=== PATIENT | male | born 1940 | race African-American/Black ===

== ENCOUNTER 2017-07-30 15:08 | Inpatient (IN) | payer MEDICARE ==
[2017-07-30] MEDS ORDERED: CELEXA20 MG PO (15:26)
[2017-07-30] MEDS ORDERED: NORVASC10 MG PO (15:26)
[2017-07-30] MEDS ORDERED: PLAVIX75 MG PO (15:27)
[2017-07-30] MEDS ORDERED: HYDROCHLOROTH12.5 M1 PO (15:27)
[2017-07-30] MEDS ORDERED: PRINIVIL20 MG PO (15:28)
[2017-07-30] MEDS ORDERED: GLUCOPHAGE1000 MG PO (15:28)
[2017-07-30] MEDS ORDERED: NAMENDA XR28 MG PO (15:29)
[2017-07-30] MEDS ORDERED: PROTONIX20 MG PO (15:30)
[2017-07-30] MEDS ORDERED: FLOMAX0.4 MG PO (15:30)
--- NOTE | 2017-07-30 15:45 | NUR ---
PATIENT CAME ON THE UNIT LOUD AND OBNOXIOUS, CURSING AND TELLING THE STAFF THAT BROUGHT HIM "I AINT STAYING AT THIS M FING PLACE." CALLED JEFFRY REEVES, DID RECEIVE NEW ORDER ATIVAN 1 MG AND HALDOL 2 MG IM GIVEN IN RIGHT DELTOID. CALLED Edi MELENDREZ, STAFF LEFT THAT BROUGHT HIM, PATIENT IN HIS OWN W/C. MADE TWO ATTEMPTS TO CALL HIS POA, LEFT MESSAGES ON BOTH PHONES.
--- NOTE | 2017-07-30 16:35 | NUR ---
PRODUCTION WEIGHER [employer]SON BATRES DID PROVIDE PATIENT A CUP OF ICED WATER. PATIENT SITTING IN HALLWAY RELAXING, HE IS CALMER, NOT RANTING, RAVING, OR CURSING.
--- NOTE | 2017-07-30 16:46 | NUR ---
PATIENT NEEDED TO URINATE AND STAFF WAS ABLE TO OBTAIN A URINE FOR A UA/C&S.
--- NOTE | 2017-07-30 16:50 | NUR ---
PATIENT DOES NOT WANT TO BE ASSESSED OR TOUCHED, DID CALL [facility]AN [facility]SQUE[facility] TO GET AN H&P AND SOCIAL HISTORY TO ANSWER QUESTIONS. PATIENTS' POA HAS NOT RETURNED A PHONE CALL YET FOR VERBAL CONSENT. WILL USE THE H&P TO DO AN ADMISSION. HELD LAB WORK AND EKG UNTIL THE AM.
[2017-07-30 16:54] LABS: APPEARANCE CLEAR (CLEAR); BILIRUBIN NEGATIVE (NEGATIVE); COLOR YELLOW (YELLOW); GLUCOSE 1000 mg/dL (NEGATIVE); KETONE SMALL mg/dL (NEGATIVE); NITRITE NEGATIVE (NEGATIVE); PROTEIN NEGATIVE (NEGATIVE); UROBILINOGEN NORMAL (NORMAL)
[2017-07-30 16:55] LABS: WHITE CELLS - URINE 0-5 /hpf (0-5)
[2017-07-30 16:56] LABS: AMORPHOUS SEDIMENT <1+ /lpf (NONE SEEN); CALCIUM OXALATE CRYSTALS OCC /hpf (NONE SEEN)
[2017-07-30 17:27] VITALS: BMI 24.7
[2017-07-30 20:58] VITALS: BP 117/72
--- NOTE | 2017-07-31 02:38 | NUR ---
B) Patient alert and oriented to self, does not want to be here, restless and wandering, I) PRN Ativan 0.5 mg PO and Haldol 2 mg PO given at 19:44 for anxiety, redirected as needed, R) Medication compliant, wanted to walk to room, unsteady gait, P) Continue plan of care.
[2017-07-31 06:33] LABS: HEMATOCRIT 43.6 % (42.0-54.0); HEMOGLOBIN 14.7 g/dL (13.5-17.5); MCH 31.1 pg (26.0-34.0); MCHC 33.7 g/dL (31.0-37.0); MCV 92.4 fL (80.0-100.0); MEAN PLATELET VOLUME 11.3 fL (7.4-10.4); PLATELET COUNT 130 10x3/uL (130-400); RBC 4.72 10x6/uL (4.20-6.10); WBC 5.2 10x3/uL (4.8-10.8)
[2017-07-31 06:46] LABS: HEMOGLOBIN A1C 7.1 % (4.8-6.0)
[2017-07-31 06:54] LABS: EOSINOPHILS 3 % (0-7); LYMPHOCYTES 46 % (15-50); MONOCYTES 2 % (2-11); NEUTROPHILS 49 % (40-80); PLATELET ESTIMATE NORMAL
[2017-07-31 07:04] LABS: ALBUMIN 3.5 g/dL (3.4-5.0); ALKALINE PHOSPHATASE 115 U/L (46-116); ALT (SGPT) 80 U/L (10-68); CALC OSMOLALITY 286 mosm/kg (275-300); CALCIUM 8.7 mg/dL (8.5-10.1); CHLORIDE - SERUM 108 mmol/L (98-107); CHOL - HDL RATIO 4.3 ratio (2.3-4.9); CHOLESTEROL, TOTAL 190 mg/dL (0-200); CREATININE - SERUM 0.9 mg/dL (0.6-1.3); GLUCOSE 131 mg/dL (74-106); HDL CHOLESTEROL 44 mg/dL (32-96); LDL CHOLESTEROL 122 mg/dL (0-100); LDL-HDL RATIO 2.8 ratio (1.5-3.5); POTASSIUM - SERUM 3.7 mmol/L (3.5-5.1); PROTEIN - SERUM 6.4 g/dL (6.4-8.2); SODIUM 144 mmol/L (136-145); THYROID STIMULATING HORMONE 2.35 uIU/mL (0.36-3.74); TRIGLYCERIDE 122 mg/dL (30-200); UREA NITROGEN 7 mg/dL (7-18); eGFR NON AFRICAN AMERICAN 87 mL/min (90-120)
[2017-07-31 08:15] VITALS: BP 164/86
[2017-07-31 08:16] VITALS: BMI 24.8
--- NOTE | 2017-07-31 08:39 | NUR ---
CALLED THE RETIREMENT TO SEE IF PATIENT'S POA HAD ALTERNATE PHONE NUMBERS, POA DOES NOT, CALLED POA'S TWO PHONE NUMBERS PROVIDED, LEFT MESSAGES, ALSO CALLED HIS TWO OTHER DAUGHTERS, LEFT MESSAGE WITH ONE AND THE OTHER THE VOICE MAILBOX HAS NOT BEEN SET UP.
--- NOTE | 2017-07-31 08:48 | NUR ---
RECEIVED VERBAL CONSENT FROM BEBA CHINO AND KAMINI TABARES. THE CODE WORD IS CHRIS.
--- NOTE | 2017-07-31 09:30 | NUR ---
PATIENT IS CURSING AND GETTING LOUD, HE IS SAYING "I'M GOING TO KILL SOMEONE" TRIED TO DE ESCALATE PATIENT BY REMOVING HIM FROM OTHERS AND THAT DID HELP ALITTLE. DID PROVIDE ATIVAN 0.5 MG WITH HALDOL 2 MG PO.
--- NOTE | 2017-07-31 10:30 | NUR ---
PATIENT IS CALMER NOW, HE IS RECLINED IN A GERICHAIR AND NOT CURSING OR THREATENING OTHERS.
[2017-07-31 10:59] VITALS: BMI 24.7
--- NOTE | 2017-07-31 11:07 | NUR ---
B) PATIENT IS AWAKE AND ALERT THIS AM, HE TRIES TO WALK, BUT HE IS UNSTEADY. HE DOES NOT LISTEN TO REDIRECTION, SAYS HE HATES EVERYONE AND HAS ALWAYS FELT THAT WAY. I) PROVIDE MEDS PRESCRIBED. R) PATIENT IS TAKING HIS MEDS, HE IS ORINETED TO SELF ONLY, INCONTINENT OF URINE, BUT DID LET STAFF ASSIST HIM TO CLEAN UP. P) CONTINUE POC.
[2017-07-31 19:40] VITALS: BP 125/66
--- NOTE | 2017-08-01 03:03 | NUR ---
B) Patient alert and oriented to self, restless at times, sitting in wheelchair in day room, ' I) Administered scheduled medications, PRN Ativan 0.5 mg PO and Haldol 2 mg PO given at 20:06 for anxiety R) Medication compliant, resting quietly in bed P) Continue plan of care.
[2017-08-01 05:13] LABS: RAPID PLASMA REAGIN Non Reactive (Non Reactive)
[2017-08-01 08:10] VITALS: BP 168/83
[2017-08-01 09:13] LABS: FOLATE (FOLIC ACID) - SERUM 8.2 ng/mL (>3.0)
--- NOTE | 2017-08-01 11:56 | PSY ---
PATIENT NAME:FRANCIS GODOY MEDICAL RECORD: [id number] : 42 LOCATION:[facility] ADMISSION DATE: 07/30/17 ACCOUNT: [id number] PSYCHIATRIC EVALUATION DATE OF EVALUATION: 07/31/17 IDENTIFYING DATA: The patient is 77 years old and he is admitted to the hospital on a voluntary basis. CHIEF COMPLAINT: Agitation. HISTORY OF PRESENT ILLNESS: The patient lives in a jail in [place]. He has established diagnoses of vascular dementia and Alzheimer disease. He recently has become very aggressive there. He has become uncooperative and has been refusing his medicines for about 2 weeks. Over that 2-week period, he has become increasingly agitated, cursing, screaming and impulsive. He has been shouting at the staff and other residents. He has been threatening to assault them and he is saying that he is going to kill some of the staff and other residents. When questioned about this, he admits he saying it, but says it is all because they are bothering him, but he cannot say who or how and just gets mad. PAST MEDICAL HISTORY: Significant for diabetes and hypertension. PAST PSYCHIATRIC HISTORY: Significant for an established diagnosis of dementia. ALLERGIES: No known drug allergies. CURRENT MEDICATIONS: Include Protonix, Flomax, Namenda, Glucophage, Prinivil, hydrochlorothiazide, Plavix, Celexa, and Norvasc. FAMILY HISTORY: Negative for psychiatric disease. SOCIAL HISTORY: The patient lives in a jail. He is . He does have adult children who are involved with his care. It is unknown as to whether or not he has a substance abuse history. MENTAL STATUS EXAMINATION: The patient is awake, alert and oriented to person only. His mood is angry. His affect is constricted. Thought processes are disorganized with delusional content and threats of aggression. He denies that he would seek to harm himself. Memory, concentration and abstraction abilities could not be formally tested because of a poor cooperative stance, but they are inferred by circumstances to be impaired significantly. ASSETS: Stable living environment. LIABILITIES: Limited insight. DIAGNOSTIC IMPRESSION: AXIS I: Vascular dementia. AXIS II: None. AXIS III: Chronic obstructive pulmonary disease, hypertension, diabetes and benign prostatic hypertrophy. AXIS IV: Moderate stressors. AXIS V: Global assessment of functioning is 30. PLAN: At this time, the patient is admitted to the hospital for a comprehensive medical, psychological, and social evaluation. He will be treated with both mood stabilizing and memory enhancing medications. His long-term prognosis is guarded. TRANSINT:[id number] Voice Confirmation ID: [id number] DOCUMENT ID: [id number] MITCHELL TERAN MD at 1156 CC: [id number] DICTATION DATE: 07/31/171737 MARINE ARCHITECT: 07/31/17 1903 ADM IN [id number] [place] [address]
--- NOTE | 2017-08-01 11:58 | NUR ---
ORIENTED TO SELF ONLY.CALM AND COOPERATIVE.COOPERATIVE WITH STAFF AND PEERS.WILL CONTINUE WITH PLAN OF CARE,MONITOR FOR CHANGES AND SAFETY.
[2017-08-01 19:30] VITALS: BP 129/66
--- NOTE | 2017-08-01 20:08 | NUR ---
B) Patient alert and oriented to self, watching TV, calm and cooperative with care and assessment, no aggression noted, I) Administered scheduled medications, monitored for falls and safety, R) Medication compliant, quiet and cooperative this shift. P) Continue plan of care.
[2017-08-02 08:19] VITALS: BP 135/77
--- NOTE | 2017-08-02 13:16 | NUR ---
B) AWAKE AND PRIENTED TO SELF ONLY. CALM AND COOPERATIVE WOTH CARE. NO AGGRESSION NOTED. AMBULATED WITH PT AND A WALKER. I) ADMINISTER PRESCRIBED MEDICATIONS, VSS, ASSESSMENT COMPLETED. R) MEDICATION COMPLIANT, MONITOR FOR SAFETY. P) CONTINUE PLAN OF CARE.
--- NOTE | 2017-08-02 19:46 | NUR ---
RECEIVED IN DINING AREA. MOVING ABOUT IN WHEELCHAIR OUTSIDE OF DINING AREA. DEMANDING TO GO TO BED AREA. VERBALLY ABUSIVE AT TIMES. CALM AND COOPERATIVE WITH CARE AND ASSESSMENTS. NO SIGNS OF AGGRESSION. REDIRECT AND REORIENT NEEDED. CONTINUES TO SIT IN WHEELCHAIR IN HALLWAY. CONTINUE PLAN OF CARE
[2017-08-02 20:00] VITALS: BP 151/76
--- NOTE | 2017-08-02 20:21 | NUR ---
VERBALLY AGGRESSIVE WITH STAFF AND PEERS. STATING "I AM GOING TO KICK EVERYONES ASS." REDIRECT AND REORIENT NEEDED.
[2017-08-03 07:10] LABS: VITAMIN D 25 HYDROXY 5.7 ng/mL (30.0-100.0)
--- NOTE | 2017-08-03 09:00 | NUR ---
B) PATIENT AWAKE AND SITTING IN WHEELCHAIR. HE IS IN A BAD MOOD THIS MORNING, CURSING AT STAFF AND PATIENTS AND REFUSING TO FOLLOW ANY RULES. REDIRECTED. I) PROVIDE PRESCRIBED MEDICATIONS, MONITOR FOR SAFETY. R) NON-COMPLIANT WITH TAKING MEDS, VITAL SIGNS OR ASSESSMENT. P) CONTINUE WITH PLAN OF CARE.
--- NOTE | 2017-08-03 10:30 | NUR ---
PRN OF ATIVAN 0.5 MG IM AND HALDOL 2 MG IM GIVEN IN RIGHT DELTOID FOR ANXIETY AND AGITATION. HE STARTED THREATENING REMARKS AT STAFF ALSO.
--- NOTE | 2017-08-03 13:33 | PN ---
PATIENT:FRANCIS GODOY MEDICAL RECORD: [id number] LOCATION:[facility] ADMISSION DATE: 07/30/17 PROGRESS NOTE DATE OF SERVICE: 08/01/2017 SUBJECTIVE: The patient's case was discussed with staff. He has no new complaint. OBJECTIVE: The patient is in better behavioral control. He did require p.r.n. medication last night, but since then, he has had 2 doses of his Geodon and seems substantially calmer. ASSESSMENT: Vascular dementia. PLAN: The patient will be maintained on his current dose of Geodon. His long-term prognosis is guarded. Brief supportive and educational interventions were made. The patient denies any intent to harm himself or others. I have started him on a low dose of Namenda for its memory-enhancing properties. TRANSINT:[id number] Voice Confirmation ID: [id number] DOCUMENT ID: [id number] MITCHELL TERAN MD at 1333 CC: [id number] DICTATION DATE: 08/01/17 1203 MUSSEL FARMER: 08/01/17 1228 ADM IN [facility] [address] [id number]
--- NOTE | 2017-08-03 13:55 | NUR ---
Nutrition Follow Up: Pt is eating 86% meal avg on a diabetic diet. No BM since admit. Meds and labs reviewed. Rec continue current diet. RD following.
[2017-08-03 20:07] VITALS: BP 159/85
--- NOTE | 2017-08-03 22:38 | NUR ---
RECIEVED IN BEDROOM. ASSIST TO TRANSFER TO BED. PROVIDED MERLINE CARE. CALM AND COOPERATIVE WT CARE AND ASSESSMENT. REFUSED PM MEDS. NO SIGNS OF AGGRESSION. REDIRECT AND REORIENT NEEDED. RESTING IN BED WITH EYES CLOSED AT THIS TIME. CONTINUE PLAN OF CARE.
[2017-08-04 08:00] VITALS: BP 137/73
--- NOTE | 2017-08-04 09:30 | NUR ---
B) AWAKE AND ORIENTED TO SELF AND PLACE, CALM AND COOPERATIVE, NO AGGRESSION THIS AM. I) ADMINISTERED PRESCRIBED MEDICATIONS, VSS, COMPLETED ASSESSMENT. R) MEDICATION COMPLIANT, SITTING QUIETLY IN W/C AT TABLE IN DAYROOM. P) CONTINUE PLAN OF CARE AND MONITOR FOR SAFETY AND CHANGES.
--- NOTE | 2017-08-04 14:30 | PN ---
PATIENT:FRANCIS GODOY MEDICAL RECORD: [id number] LOCATION:[facility] ADMISSION DATE: 07/30/17 PROGRESS NOTE DATE OF SERVICE: 08/03/2017 SUBJECTIVE: The patient's case was discussed with staff. He has no new complaint. OBJECTIVE: The patient has been quite angry and irritable. He is generally unhappy and dissatisfied and cannot really give any specific issues that are bothering him. He is not taking his medications, which of course makes it quite difficult to manage him from a pharmacologic standpoint. Furthermore, he has an advanced dementia, which makes it hard to manage him from a therapeutic nonpharmacologic standpoint. ASSESSMENT: No change in diagnoses. PLAN: The patient will be maintained on current medicines since I really cannot adjust them in an individual who will not take them consistently and I am going to order some p.r.n. Geodon in case he becomes agitated in a significant potentially dangerous manner. TRANSINT:[id number] Voice Confirmation ID: [id number] DOCUMENT ID: [id number] MITCHELL TERAN MD at 1430 CC: [id number] DICTATION DATE: 08/03/17 1337 HOT BOX OPERATOR: 08/03/17 1401 ADM IN [id number] [place] [address]
--- NOTE | 2017-08-04 14:30 | NUR ---
SITTING IN WHEELCHAIR AT DOORWAY TO UNIT, STARTED ARGUING WND THREATENING THE STAFF AND DR. TERAN. CODE MUSCLE CALLED AND PRN GIVEN OF ATIVAN 0.5 MG AND HALDOL 2 MG IM IN RIGHT DELTOID.
[2017-08-04 20:21] VITALS: BP 133/68
--- NOTE | 2017-08-05 00:05 | NUR ---
RECEIVED IN BEDROOM. RESTING IN BED WITH EYES OPEN. CALM AND COOPERATIVE WITH CARE AND ASSESSMENT. REFUSED PM MEDS. NO SIGNS OF AGGRESSION. ENCOURAGE TO EXPRESS NEEDS. REDIRECT AND REORIENT NEEDED. RESTING IN BED WITH EYES CLOSED AT THIS TIME. CONTINUE PLAN OF CARE.
--- NOTE | 2017-08-05 07:30 | NUR ---
REPORT RECEIVED AND CARE ASSUMED. SELF PROPELS IN WHEELCHAIR. SITTING IN W/C REFUSING TO SPEAKS NICELY TO PEERS OR STAFF. AGREED TO ASSESSMENT, AND COMPLETED PER FLOW SHEET. REFUSED TO TAKE ANY MEDICATIONS. CONTINUE PLAN OF CARE. AND MONITOR FOR SAFETY AND CHANGES.
[2017-08-05 09:34] VITALS: BP 149/77
--- NOTE | 2017-08-05 10:55 | NUR ---
PRN OF HALDOL 2 MG AND ATIVAN 0.5 MG IM GIVEN IN LEFT DELTOID FOR CURSING, THREATENING, AND HITTING AT STAFF.
--- NOTE | 2017-08-05 13:00 | PN ---
PATIENT:FRANCIS GODOY MEDICAL RECORD: [id number] LOCATION:[facility] ADMISSION DATE: 07/30/17 PROGRESS NOTE DATE OF SERVICE: 08/04/2017 SUBJECTIVE: The patient's case was discussed with staff. He has no new complaint. OBJECTIVE: The patient is angry and wants to live on his own in his own house in [place]. He no longer has this house. Prior to coming here from the custodial, he had been in the same custodial for 3 years. Some interesting collateral information that does have some bearing on this case, but not acutely is the data that his daughter gives and that is that he was using crack cocaine right up to the time he went into the custodial. In fact, she said if you hand him a disposable presser automatic which we did not do, that he would hold the flame and try to smoke an imaginary crack pipe. ASSESSMENT: No change in diagnoses. PLAN: Brief supportive and educational interventions were made. The patient's long-term prognosis is guarded. He will be treated with a scheduled dose of Klonopin to assist with his regular periodic episodes of agitation. TRANSINT:[id number] Voice Confirmation ID: [id number] DOCUMENT ID: [id number] MITCHELL TERAN MD at 1300 CC: [id number] DICTATION DATE: 08/04/17 1445 PLYWOOD FACTORY WORKER: 08/04/17 1601 ADM IN [facility] [address] [place] [address]
--- NOTE | 2017-08-05 21:57 | NUR ---
RECEIVED IN BEDROOM. MHT ATTEMPTING TO TRANSFER HIM TO BED. COMBATIVE WITH MHT. REDIRECTED AND ASSISTED TO BED. CHANGED INTO BEDDING ATTIRE. REFUSED PM PO MEDS BUT CONTINUES TO BE CALM, RESTING WITH EYES CLOSED AT THIS TIME. CONTINUE PLAN OF CARE.
--- NOTE | 2017-08-06 04:45 | NUR ---
PT IN ROOM ATTEMPTING TO STAND WTIHOUT ASSIST. VERBALLY AGGRESSIVE WITH REDIRECTION. VERBALLY ABUSIVE WITH STAFF. INCREASING ANXIETY. PSYCHOTIC BEHAVIORS. REFUSES TO GET BACK INTO BED. PRN ATIVAN 0.5 MG IM AND PRN HALDOL 2 MG IM GIVEN.
--- NOTE | 2017-08-06 05:30 | NUR ---
PT RESTING QUIETLY IN BED WITH EYES CLOSED.
[2017-08-06 08:00] VITALS: BP 143/71
--- NOTE | 2017-08-06 11:35 | NUR ---
B) PATIENT IS ALERT AND AWAKE, HE IS ORIENTED TO SELF, GETS CONFUSED TO WHERE HE IS, HE REFUSED AM MEDS, BUT HE HAS NOT SHOWN AGGRESSION THIS AM. HE SELF PROPELS IN THE W/C AND HE IS EATING WELL. I) PROVIDE PRESCRIBED MEDS, REDIRECT TO APPROPRIATE BEHAVIORS. R) PATIENT IS RESTING IN THE DAY ROOM CURRENTLY. P) CONTINUE POC.
--- NOTE | 2017-08-06 13:31 | PN ---
PATIENT:FRANCIS GODOY MEDICAL RECORD: [id number] LOCATION:[facility] ADMISSION DATE: 07/30/17 PROGRESS NOTE DATE OF SERVICE: 08/05/2017 SUBJECTIVE: The patient's case was discussed with staff. He has no new complaint. OBJECTIVE: The patient is in good behavioral control with limited insight about his condition. He tolerates his medicines well. He did require p.r.n. medication this morning because of agitation. He is still refusing scheduled medicines. ASSESSMENT: No change in diagnoses. PLAN: The patient's changing condition is something of a mystery. As mentioned yesterday, I am aware of his history of cocaine addiction, but he has been on the same alf for 3 years, why all of a sudden has he become so disruptive. The patient has severe enough impairment that he cannot really explain it. At this point, I think I can help him if he would just take medicines on a scheduled basis and therein lies the problem. I will talk with him about this some more. Hopefully, he will begin taking medications. TRANSINT:[id number] Voice Confirmation ID: [id number] DOCUMENT ID: [id number] MITCHELL TERAN MD at 1331 CC: [id number] DICTATION DATE: 08/05/17 1310 MICROSOFT APPLICATION DEVELOPER: 08/05/17 1345 ADM IN [id number] [place] [address]
--- NOTE | 2017-08-06 13:56 | NUR ---
PATIENT IS AWAKE AND ALERT AND HE IS GETTING MORE AND MORE AGITATED, HE IS NOT REDIRECTING, HE CURSES AND GETS THE OTHE PATIENTS WOUND UP BY BEING LOUD AND IRRITABLE. PATIENT IS GETTING LOUDER AND CURSING MORE, THREATENING MHT AND A.T. HALDOL 2 MG WITH ATIVAN 0.5 MG IM GIVEN IN LEFT DELTOID. WILL MONITOR.
--- NOTE | 2017-08-06 14:30 | NUR ---
PATIENT IS CALMER NOW, HE IS NOT CURSING AND YELLING, HE IS IN THE DINING ROOM AWAY FROM OTHERS AND THEREFORE THE OTHER PATIENTS ARE CALMER ALSO.
--- NOTE | 2017-08-06 17:17 | NUR ---
PATIENT RECEIVED A SCHEDULED HALDOL DECOANATE, SEE MAR. DID CALL A CODE MELENDREZ PATIENT HAS REFUSED ALL MEDS AND THREATENS TO PUNCH STAFF IF WE TOUCH HIM.
--- NOTE | 2017-08-07 01:17 | NUR ---
B) Patient is alert and oriented to self, calm and cooperative this shift, sitting watching TV, no aggression noted. I) No scheduled medications this shift, redirected as needed R) Cooperative and quiet this shift, P) Continue plan of care.
[2017-08-07 09:40] VITALS: BP 145/73
--- NOTE | 2017-08-07 13:58 | NUR ---
B) PATIENT IS AWAKE AND ALERT AND HE IS TAKING HIS MEDICATION TODAY, HE IS CALMER AND NOT CURSING MUCH. PATIENT STANDS WITH ASSIST. I) PROVIDE PRESCRIBED MEDS. R) PATIENT COMPLIANT WITH MEDS AND UNIT MILIEU. P) CONTINUE POC.
[2017-08-07 19:00] VITALS: BP 152/79
--- NOTE | 2017-08-07 19:27 | PN ---
PATIENT:FRANCIS GODOY MEDICAL RECORD: [id number] LOCATION:[facility] ADMISSION DATE: 07/30/17 PROGRESS NOTE DATE OF SERVICE: 08/07/2017 SUBJECTIVE: No new complaint. OBJECTIVE: The patient did require p.r.n. yesterday, but today is much more cooperative. He did take his medications. He slept 9 hours. Staff report definite improvement. On exam, mood is pleasant and euthymic. Affect is bland. Speech is rather terse. Content of thought is negative for overt psychosis. Sensorium shows no change. ASSESSMENT: No change in diagnosis. PLAN: 1. Continue all current medications. 2. Continue supportive therapy. TRANSINT:[id number] Voice Confirmation ID: [id number] DOCUMENT ID: [id number] SHEA HOOVER III, MD at 1927 CC: [id number] DICTATION DATE: 08/07/17 1201 ADMINISTRATIVE OFFICE ASSISTANT: 08/07/17 1342 ADM IN [id number] [place] [address]
--- NOTE | 2017-08-08 02:18 | NUR ---
B) Patient is alert and sitting in a wheelchair in the hallway outside the dining room, keeping to himself. I) No scheduled medications this shif, redirected as needed. R) No aggression noted restless and wanting to go to bed. p) Continue plan of care.
[2017-08-08 11:05] VITALS: BP 148/78
--- NOTE | 2017-08-08 22:07 | NUR ---
B) Patient is alert and waiting in the hallway to go to bed, calm and cooperative with staff, I) no medications this shift, monitored for safety and for falls, R) Resting quietly in bed now, P) Continue plan of care.
[2017-08-08 22:47] VITALS: BP 140/68
[2017-08-09 07:00] VITALS: BP 147/80
--- NOTE | 2017-08-09 14:32 | NUR ---
IS ORIENTED TO SELF ONLY.COOPERATIVE WITH MEDS AND STAFF.PROPELLS SELF IN WHEELCHAIR.WILL CONTINUE WITH PLAN OF CARE,MONITOR FOR CHANGES AND SAFETY.
[2017-08-09 19:30] VITALS: BP 128/72
--- NOTE | 2017-08-09 20:08 | NUR ---
RECEIVED IN BEDROOM. ASSIST TO TRANSFERE TO BED. CLEANED UP FOR BEDTIME. CALM AND COOPERATIVE WITH CARE AND ASSESSMENTS. NO SIGNS OF AGGRESSION. REDIRECT AND REORIENT NEEDED. RESTING IN BED EYES CLOSED AT THIS TIME. CONTINUE PLAN OF CARE
[2017-08-10 09:18] VITALS: BP 131/67
--- NOTE | 2017-08-10 10:00 | NUR ---
AWAKE AND ALERT, ORIENTED TO SELF ONLY. CALM AND COOPERATIVE WITH CARE AND ASSESSMENT. NO AGGRESSION NOTED. MEDICATIONS GIVEN ORDERED. COMPLIANT WITH TAKING MEDICATIONS. REDIRECT AND REORIENT NEEDED. CONTINUE POC.
--- NOTE | 2017-08-10 12:21 | PN ---
PATIENT:FRANCIS GODOY MEDICAL RECORD: [id number] LOCATION:[facility] ADMISSION DATE: 07/30/17 PROGRESS NOTE DATE OF SERVICE: 08/06/2017 SUBJECTIVE: The patient's case was discussed with staff. He has no new complaint. OBJECTIVE: The patient is not taking his medicines. He is intermittently confused and very agitated. He has required multiple visits from male staff around the hospital including maintenance and other male nurses and has been given multiple p.r.n. doses of Haldol and Ativan. Although it does calm him, once it wears off, he becomes agitated again. ASSESSMENT: No change in diagnoses. PLAN: This patient has no options, but to live in long-term care. He cannot live in a long-term care given his current state of agitation. I am at a loss as to explain this particular change. He has been living in the same penitentiary for a long time. He cannot explain to me why he has become so angry and unhappy and in fact he does not even remember living in a penitentiary. He insists he has a house in [place]. He does not have a house in [place]. He lives in a penitentiary as mentioned above. He does have a history of cocaine addiction that lasted right up until the time he was placed in the penitentiary, but why he had no behavior problems up until recently is unknown. He has been prescribed multiple medications for his blood pressure, diabetes, and behavior problems. I have stopped his scheduled psychoactive medicines, which consisted of Namenda, Klonopin, and Geodon. He is not taking them. I am going to give him a long-acting Haldol Decanoate injection today. This is not something I would ordinarily give an elderly person with a diagnosis of dementia, but he is dangerous and unmanageable. He will not take oral medications and it has been a week that we have been trying to work with him and it has not been effective. I have weighed the risks and benefits of this and I think the overall indication is that he is dangerous and must be treated. TRANSINT:[id number] Voice Confirmation ID: [id number] DOCUMENT ID: [id number] MITCHELL TERAN MD at 1221 CC: [id number] DICTATION DATE: 08/06/17 1341 CHIEF SERVICE OBSERVER: 08/06/17 1445 ADM IN [facility] [address] [id number]
[2017-08-10 20:09] VITALS: BP 126/70
--- NOTE | 2017-08-10 22:46 | NUR ---
RECEIVED IN BEDROOM. RESTING IN BED WITH EYES OPEN. CALM AND COOPERATIVE WITH CARE AND ASSESSMENT. NO SIGNS OF AGGRESSION. INITIALLY REFUSED PM MEDS BUT TOOK MEDS AFTER ENCOURAGEMENT AND REDIRECTION. RESTING IN BED WITH EYES CLOSED AT THIS TIME. CONTINUE PLAN OF CARE.
--- NOTE | 2017-08-11 07:30 | NUR ---
B) RECEIVED IN HALLWAY SITTING IN WHEELCHAIR. CALM AND COOPERATIVE AT THIS TIME. NO AGGRESSSION NOTED. I) ADMINISTERED PRESCRIBED MEDICATIONS, VSS, ASSESSMENT COMPLETED. R) COMPLIANT WITH TAKING MEDICATIONS, BUT THEN SPIT 2 PILLS INTO WATER CUP. P) CONTINUE PLAN OF CARE AND MONITOR FOR SAFETY.
[2017-08-11 09:54] VITALS: BP 114/61
--- NOTE | 2017-08-11 10:32 | PN ---
PATIENT:FRANCIS GODOY MEDICAL RECORD: [id number] LOCATION:[facility] ADMISSION DATE: 07/30/17 PROGRESS NOTE DATE OF SERVICE: 08/10/2017 SUBJECTIVE: The patient's case was discussed with staff. He has no new complaint. OBJECTIVE: The patient has been more compliant with medications. He is much calmer and less threatening. He does not appear to be having any side effects with the long-acting injection he received. ASSESSMENT: No change in diagnoses. PLAN: The patient will be given Geodon at a dose of 20 mg twice daily. Geodon is being used to treat his underlying thought disorganization. He will be monitored for clinical changes associated with its use. TRANSINT:[id number] Voice Confirmation ID: [id number] DOCUMENT ID: [id number] MITCHELL TERAN MD at 1032 CC: [id number] DICTATION DATE: 08/10/17 1238 MEDICAL/SURGERY REGISTERED NURSE: 08/10/17 1251 ADM IN [address] [id number] [place] [id number]
--- NOTE | 2017-08-11 12:32 | NUR ---
NUTRITION F/U CHART REVIEWED. PT TOLERATING ADA DIET WITH 75 TO 100% INTAKE RECENT MEALS. MULTIPLE BM RECORDED 08/10/17. WILL CONTINUE TO PROVIDE DIET, MONITOR PO INTAKE. RD FOLLOWING
[2017-08-11 20:49] VITALS: BP 124/70
--- NOTE | 2017-08-11 23:04 | NUR ---
RECEIVED IN PATIENT ROOM. RESTING IN BED WITH EYES OPEN. CALM AND COOPERATIVE WITH CARE AND ASSESSMENT. NO SIGNS OF AGGRESSION. ENCOURAGE TO EXPRESS NEEDS. REDIRECT AND REORIENT NEEDED. RESTING IN BED WITH EYES CLOSED AT THIS TIME. CONTINUE PLAN OF CARE.
[2017-08-12 09:00] VITALS: BP 139/72
--- NOTE | 2017-08-12 09:44 | NUR ---
B) PATIENT IS AWAKE AND ALERT, HE WAS PLEASANT UNTIL THIS NURSE PROVIDED HIM MEDICATION AND HE DID NOT WANT TO TAKE IT, BUT HE DID, IT WAS CRUSHED IN CHOCOLATE PUDDING AND HE FUSSED AND FUSSED STATING "I'M NOT TAKING THAT SH--, I WANT THE HELL OUT OF HERE, OPEN THAT OFFICE DOOR SO I CAN LEAVE RIGHT NOW." PATIENT DOES NOT UNDERSTAND THAT HE HAS TO WAIT FOR THE DR TO RELEASE HIM, HE WANTS TO ARGUE AND GET IRRITABLE. I) PROVIDE PRESCRIBED MEDS. R) PATIENT IS COMPLIANT TODAY WITH MEDS, BUT HE SWEARS HE WON'T DO IT AGAIN. P) CONTINUE POC.
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
--- NOTE | 2017-08-12 10:47 | NUR ---
PATIENT RECEIVED IM ATIVAN 0.5 MG AND HALDOL 2 MG IN RIGHT DELTOID. PATIENT RECEIVED HE CONTINUES TO THREATEN, WILL MONITOR.
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
[2017-08-12 20:22] VITALS: BP 134/76
--- NOTE | 2017-08-13 02:06 | NUR ---
b) patient is alert and oriented to self and being in a hospital, restless and confused, I) Administered scheduled medications crushed in applesauce, monitored for safety, R) Medication compliant, resting quietly, P) Continue plan of care.
[2017-08-13 08:31] VITALS: BP 139/74
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
[2017-08-13] MEDS ORDERED: ZESTRIL40 MG PO (12:19)
[2017-08-13] MEDS ORDERED: VITAMIN D5000 UNIT PO (12:20)
[2017-08-13] MEDS ORDERED: GEODON20 MG PO (12:20)
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
--- NOTE | 2017-08-14 07:26 | NUR ---
B) PATIENT IS AWAKE AND ALERT, HE IS LAUGHING AT THE OTHER PATIENTS. HE SAYS "THEY ARE FUNNY HELL" PATIENT SELF PROPELS IN A W/C. I) PROVIDE PRESCRIBED MEDS. R) PATIENT WILL TAKE MEDS CRUSHED AND PUT ON HIS FOOD. P) CONTINUE POC.
[2017-08-14 10:00] VITALS: BP 122/69
--- NOTE | 2017-08-14 10:00 | PN ---
PATIENT:FRANCIS GODOY MEDICAL RECORD: [id number] LOCATION:SARAH Chiu ADMISSION DATE: 07/30/17 PROGRESS NOTE DATE OF SERVICE: 08/13/2017 SUBJECTIVE: The patient's case was discussed with staff. He has no new complaint. OBJECTIVE: The patient denies that he would seek to harm himself or others. He is much calmer and cooperative. ASSESSMENT: No change in diagnoses. PLAN: Current medicines have been reviewed and will be maintained. His long-term prognosis is guarded. Brief supportive and educational interventions were made. If this level of improvement is maintained, I anticipate that he can be transitioned out of the hospital soon. TRANSINT:[id number] Voice Confirmation ID: [id number] DOCUMENT ID: [id number] MITCHELL TERAN MD at 1000 CC: [id number] DICTATION DATE: 08/13/17 1218 PAVING SUPERVISOR: 08/13/17 1229 ADM IN [facility] [address] [place] [address]
--- NOTE | 2017-08-15 00:16 | NUR ---
B) patient alert and oriented to self, restless and pacing the hallway in a wheelchair, I) Administered scheduled medications crushed in pudding , redirected as needed, monitored for safety\ R) medication compliant, resting quietly in bed P) Continue plan of care.
[2017-08-15 08:00] VITALS: BP 117/55
--- NOTE | 2017-08-15 11:00 | PN ---
PATIENT:FRANCIS GODOY MEDICAL RECORD: [id number] LOCATION:SARAH Chiu ADMISSION DATE: 07/30/17 PROGRESS NOTE DATE OF SERVICE: 08/14/2017 SUBJECTIVE: The patient's case was discussed with staff. He has no new complaint. OBJECTIVE: The patient has been verbally aggressive, threatening and agitated. In fact, he is so disruptive that the anticipated discharge today has been canceled. He has been cursing and yelling about things that are really nonsensical. ASSESSMENT: No change in diagnoses. PLAN: The patient will be given a higher dose of Geodon in an effort to control some of these behaviors. His long-term prognosis is guarded. TRANSINT:[id number] Voice Confirmation ID: [id number] DOCUMENT ID: [id number] MITCHELL TERAN MD at 1100 CC: [id number] DICTATION DATE: 08/14/17 1238 COMPUTER ENGINEERING TECHNICIAN: 08/14/17 1250 ADM IN [place] [id number] [place] [id number]
[2017-08-15 19:30] VITALS: BP 118/92
--- NOTE | 2017-08-16 01:16 | NUR ---
RECEIVED IN ROOM. RESTING IN BED WITH EYES OPEN. CALM AND COOPERATIVE WT CARE AND ASSESSMENT. NO SIGNS OF AGGRESSION. ENCOURAGE TO EXPRESS NEEDS. RESTING IN BED WITH EYES CLOSED AT THIS TIME. CONTINUE PLAN OF CARE.
[2017-08-16 08:00] VITALS: BP 113/67
--- NOTE | 2017-08-16 08:43 | NUR ---
PATIENT IS AWAKE AND ALERT AND ORIENTED TO PERSON ONLY. PATIENT SITTING UP AND EATING HIS BREAKFAST IN THE DINING ROOM. SCHEDULED MORNING MEDICATIONS GIVEN TO PATIENT. PATIENT TOLERATED WELL. REORIENTED PATIENT TO PLACE AND TIME. WILL CONTINUE TO MONITOR PATIENT AND CONTINUE PLAN OF CARE.
[2017-08-16 19:30] VITALS: BP 118/70
--- NOTE | 2017-08-16 23:19 | NUR ---
RECEIVED IN HALLWAY OUTSIDE OF NURSES STATION. SITTING IN RECLINER. SOCIALIZING WITH PEERS AND STAFF. CALM AND COOPERATIVE [facility] CARE AND ASSESSMENT. NO SIGNS OF AGGRESSION. IN GOOD SPIRITS. LOOKING FORWARD TO GOING HOME TOMORROW. ENCOURAGE TO EXPRESS NEEDS. RESTING IN BED WITH EYES CLOSED AT THIS TIME. CONTINUE PLAN OF CARE.
--- NOTE | 2017-08-17 06:40 | NUR ---
REFUSED AM MEDICATIONS. VERBALLY ABUSIVE. MAKING VERBAL THREATS TO STAFF.
[2017-08-17 08:00] VITALS: BP 138/67
--- NOTE | 2017-08-17 10:00 | NUR ---
CALM AND COOPERATIVE WITH CARE AND ASSESSMENT. NO AGGRESSION NOTED. MEDICATIONS GIVEN ORDERED. FALL PRECAUTIONS MAINTAINED. WILL CONTINUE TO MONITOR. PATIENT IS SET TO DISCHARGE TODAY. ALL PAPERWORK REVIEWED AND FAXED TO FAMILY AT [facility]. ALL BELONGINGS BAGGED AND ACCOUNTED FOR.
--- NOTE | 2017-08-17 13:37 | PN ---
PATIENT:FRANCIS GODOY MEDICAL RECORD: [id number] LOCATION:SARAH Chiu ADMISSION DATE: 07/30/17 PROGRESS NOTE DATE OF SERVICE: 08/15/2017 SUBJECTIVE: The patient's case was discussed with staff. He has no new complaint. OBJECTIVE: The patient denies intent to harm himself or others. He is only partially oriented. Eye contact is fair. ASSESSMENT: No change in diagnoses. PLAN: The patient had his Geodon increased yesterday. His behavior is better today, but I am unsure if this increase is going to cause him to be over sedated. For today, I am just going to leave the medicines alone and will observe his behavior. I think he is close to being ready for discharge. TRANSINT:[id number] Voice Confirmation ID: [id number] DOCUMENT ID: [id number] MITCHELL TERAN MD at 1337 CC: [id number] DICTATION DATE: 08/15/17 1106 TAPER MACHINE: 08/15/17 1117 ADM IN [place] [address] [place] [address]
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
== END 2017-08-17 11:44 | DRG 57 ==
LOC: EDSEX → D.PSYCH 15:08
PROVIDERS: ADMIT Psychiatry & Neurology Psychiatry
DX: G30.9 Alzheimer's disease, unspecified (principal); F02.81 Dementia in other diseases classified elsewhere, unspecified severity, with behavioral disturbance; F01.51 Vascular dementia, unspecified severity, with behavioral disturbance; I69.919 Unspecified symptoms and signs involving cognitive functions following unspecified cerebrovascular disease; Z72.0 Tobacco use; J44.9 Chronic obstructive pulmonary disease, unspecified; I10 Essential (primary) hypertension; E11.9 Type 2 diabetes mellitus without complications; N40.0 Benign prostatic hyperplasia without lower urinary tract symptoms; F32.9 Major depressive disorder, single episode, unspecified; Z74.09 Other reduced mobility; E55.9 Vitamin D deficiency, unspecified

== ENCOUNTER 2017-09-09 15:35 | Inpatient (IN) | payer MEDICARE ==
[~2017-09-09] VITALS: Ht 182.9 cm; Wt 87.8 kg
[~2017-09-09 15:35] MED LIST: CELEXA20 MG PO; FLOMAX0.4 MG PO; GEODON20 MG PO; GLUCOPHAGE1000 MG PO; HYDROCHLOROTH12.5 M1 PO; NAMENDA XR28 MG PO; NORVASC10 MG PO; PLAVIX75 MG PO; PRINIVIL20 MG PO; PROTONIX20 MG PO; VITAMIN D5000 UNIT PO; ZESTRIL40 MG PO
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
[2017-09-09 19:43] VITALS: BP 114/49; BP 129/73
--- NOTE | 2017-09-10 00:56 | NUR ---
B) patient alert and oriented to self, no aggression noted this shift, I) No medications this shift, monitored for behaviors, R) no behaviors noted, P) Continue plan of care.
[2017-09-10 04:11] VITALS: BP 129/73; BMI 26.5
[2017-09-10 05:50] LABS: BASOPHILS 0.2 % (0-2); EOSINOPHILS 4.5 % (0-7); HEMATOCRIT 39.9 % (42.0-54.0); HEMOGLOBIN 13.8 g/dL (13.5-17.5); IMMATURE GRANULOCYTES 0.2 % (0-5); LYMPHOCYTES 45.4 % (15-50); MCH 30.9 pg (26.0-34.0); MCHC 34.6 g/dL (31.0-37.0); MCV 89.5 fL (80.0-100.0); MEAN PLATELET VOLUME 11.8 fL (7.4-10.4); NEUTROPHILS 40.7 % (40-80); PLATELET COUNT 150 10x3/uL (130-400); RBC 4.46 10x6/uL (4.20-6.10); RDW 13.3 % (11.5-14.5); WBC 4.4 10x3/uL (4.8-10.8)
[2017-09-10 06:14] LABS: ALBUMIN 3.2 g/dL (3.4-5.0); ALKALINE PHOSPHATASE 90 U/L (46-116); ALT (SGPT) 54 U/L (10-68); BILIRUBIN - TOTAL 0.79 mg/dL (0.2-1.3); CALC OSMOLALITY 281 mosm/kg (275-300); CALCIUM 8.8 mg/dL (8.5-10.1); CARBON DIOXIDE 25.1 mmol/L (21.0-32.0); CHLORIDE - SERUM 106 mmol/L (98-107); CHOL - HDL RATIO 3.4 ratio (2.3-4.9); CHOLESTEROL, TOTAL 158 mg/dL (0-200); CREATININE - SERUM 0.9 mg/dL (0.6-1.3); GLUCOSE 90 mg/dL (74-106); HDL CHOLESTEROL 46 mg/dL (32-96); LDL CHOLESTEROL 91 mg/dL (0-100); POTASSIUM - SERUM 3.7 mmol/L (3.5-5.1); PROTEIN - SERUM 6.4 g/dL (6.4-8.2); SODIUM 142 mmol/L (136-145); THYROID STIMULATING HORMONE 1.11 uIU/mL (0.36-3.74); TRIGLYCERIDE 107 mg/dL (30-200); UREA NITROGEN 10 mg/dL (7-18); eGFR NON AFRICAN AMERICAN 87 mL/min (90-120)
[2017-09-10 06:17] LABS: HEMOGLOBIN A1C 6.4 % (4.8-6.0)
[2017-09-10 08:00] VITALS: BP 135/66
[2017-09-10 08:11] VITALS: BMI 26.6
[2017-09-10 09:48] VITALS: Ht 182.9 cm; Wt 87.8 kg
[2017-09-10 19:29] VITALS: BP 136/73
[2017-09-10 20:32] LABS: APPEARANCE CLEAR (CLEAR); COLOR DK YELLOW (YELLOW); GLUCOSE NEGATIVE (NEGATIVE); KETONE NEGATIVE (NEGATIVE); NITRITE NEGATIVE (NEGATIVE); PROTEIN NEGATIVE (NEGATIVE); SPECIFIC GRAVITY 1.025 (1.005-1.020)
[2017-09-10 20:33] LABS: BILIRUBIN NEGATIVE (NEGATIVE)
[2017-09-10 20:34] LABS: WHITE CELLS - URINE 0-5 /hpf (0-5)
[2017-09-10 20:35] LABS: BACTERIA FEW /hpf (NONE SEEN); EPITHELIAL CELLS 0-5 /hpf (0-5)
--- NOTE | 2017-09-11 02:29 | NUR ---
B) Patient alert and oriented to name and being in a hospital, does not know or remember why he is here, patient stated that the doctor told him to come here, I) Administered scheduled medications, monitored for safety and behaviors, R) Medication compliant, no aggression noted this shift, P) Continue plan of care.
[2017-09-11 07:36] LABS: RAPID PLASMA REAGIN Non Reactive (Non Reactive)
[2017-09-11 08:00] VITALS: BP 110/54
[2017-09-11 08:20] LABS: FOLATE (FOLIC ACID) - SERUM 9.2 ng/mL (>3.0); VITAMIN D 25 HYDROXY 34.3 ng/mL (30.0-100.0)
--- NOTE | 2017-09-11 09:33 | NUR ---
B) PATIENT IS AWAKE AND ALERT AND HE DID TAKE HIS ZYPREXA AND NORVASC THIS AM, HE SELF PROPELS IN THE W/C AND HE CAN TOILET HIMSELF, BUT NEEDS SOME ASSIST WITH TRANSFERS. PATIENT IS ORIENTED TO SELF, HE HAS NO RECALL TO WHY HE IS HERE, HE SAYS "OH THE WANTED ME TO COME HERE" I) PROVIDE PRESCRIBED MEDS. R) PATIENT IS CALM AND HAS NOT SHOWN ANY AGGRESSION TODAY. P) CONTINUE POC.
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
[2017-09-11 20:31] VITALS: BP 140/74
--- NOTE | 2017-09-12 02:08 | NUR ---
B) Patient alert and oriented to self and being in a hospital, calm and cooperative, no aggression noted, I) Administered scheduled medications, monitored for safety and behaviors, R) Medication compliant. resting quietly in bed, P) Continue plan of care.
[2017-09-12 08:40] VITALS: BP 112/64
--- NOTE | 2017-09-12 10:32 | PN ---
PATIENT:FRANCIS GODOY MEDICAL RECORD: [id number] LOCATION:SARAH Chiu ADMISSION DATE: 09/09/17 PROGRESS NOTE DATE OF SERVICE: 09/11/2017 SUBJECTIVE: The patient's case was discussed with staff. He has no new complaint. OBJECTIVE: The patient is in good behavioral control with limited insight about his condition. He does tolerate his medicines well. ASSESSMENT: No change in diagnoses. PLAN: Brief supportive and educational interventions were made. The patient's long-term prognosis is guarded. He has not been aggressive here. I am sure that what was reported at the residential happened, I am just still trying to assess whether or not this was an isolated event or is it something that is an underlying change in his condition that requires revising his pharmacologic treatment. TRANSINT:[id number] Voice Confirmation ID: [id number] DOCUMENT ID: [id number] MITCHELL TEARN MD at 1032 CC: [id number] DICTATION DATE: 09/11/17 1242 SENIOR APPLICATIONS ANALYST: 09/11/17 1322 ADM IN [facility] [address] [place] [address]
--- NOTE | 2017-09-12 15:19 | NUR ---
IS ORIENTED TO PERSON AND PLACE.PROPELLS SELF IN WHEELCHAIR.REFUSED MEDS THIS AM,CALLED THEM DOPE.NURSE EDUCATED HIM ON POTENTAL RESULTS OF STROKE OR COMA FROM NOT TAKING MEDS AND HE DECIDED TO TAKE BP MEDS AND DIABETIC MEDS.HE THEN WENT TO BATHROOM AND CAME BACK TO NURSE AND ASKED TO TAKE THE REST OF HIS MEDS.WILL CONTINUE WITH PLAN OF CARE,MONITOR FOR CHANGES AND SAFETY.
--- NOTE | 2017-09-12 20:02 | PN ---
PATIENT:FRANCIS GODOY MEDICAL RECORD: [id number] LOCATION:SARAH Chiu ADMISSION DATE: 09/09/17 PROGRESS NOTE DATE OF SERVICE: 09/12/2017 SUBJECTIVE: The patient's case was discussed with staff. He has no new complaint. OBJECTIVE: The patient is quite confused, but he is compliant with medications and is tolerating his medications reasonably well. He does have a depressed mood, although he denies being depressed and also certainly denies wanting to hurt himself, and I am going to start him on a low dose of an antidepressant. His long-term prognosis is guarded. TRANSINT:[id number] Voice Confirmation ID: [id number] DOCUMENT ID: [id number] MITCHELL TERAN MD at 2002 CC: [id number] DICTATION DATE: 09/12/17 1044 INSTRUMENT INSTALLER: 09/12/17 1140 ADM IN [place] [id number] [place] [address]
[2017-09-12 22:05] VITALS: BP 128/63
[2017-09-13 08:00] VITALS: BP 152/75
--- NOTE | 2017-09-13 08:21 | NUR ---
ADMINISTERD MORNING MEDS WHOLE WITHOUT DIFFICULTY. PLEASANT AFFECT. WILL CONTINUE TO MONITOR
[2017-09-13 19:30] VITALS: BP 138/88
--- NOTE | 2017-09-13 22:47 | NUR ---
RECEIOVED IN HALLWAY. WALKING TO NIS ROOM FOR BEDTIME. CALM AND COOPERATIVE WITH CARE AND ASSESSMENTS. NO SIGNS OF AGGRESSION. REDIRECT AND REORIENT NEEDED. ENCOURAGE TO EXPRESS NEEDS. RESTING IN BED EYES CLOSED AT THIS TIME. CONTINUE PLAN OF CARE
[2017-09-14 08:55] VITALS: BP 93/61
--- NOTE | 2017-09-14 09:19 | PN ---
PATIENT:FRANCIS GODOY MEDICAL RECORD: [id number] LOCATION:SARAH Chiu ADMISSION DATE: 09/09/17 PROGRESS NOTE DATE OF SERVICE: 09/13/2017 SUBJECTIVE: The patient's case was discussed with staff. He has no new complaint. OBJECTIVE: The patient denies intent to harm himself or others. He is in good behavioral control even though he is severely impaired cognitively. ASSESSMENT: No change in diagnoses. PLAN: Current medicines and therapies have been reviewed and will be maintained. Long-term prognosis is guarded. TRANSINT:[id number] Voice Confirmation ID: [id number] DOCUMENT ID: [id number] MITCHELL TERAN MD at 0919 CC: [id number] DICTATION DATE: 09/13/17 111 CREW DIRECTOR: 09/13/17 1220 ADM IN [facility] [address] [place] [address]
[2017-09-14] MEDS ORDERED: EFFEXOR37.5 MG PO (14:03)
[2017-09-14] MEDS ORDERED: Levaquin PO (14:03)
[2017-09-14] MEDS ORDERED: LIPITOR10 MG PO (14:03)
[2017-09-14] MEDS ORDERED: FLORAJEN3 CAPS460 MG PO (14:04)
[2017-09-14 20:14] VITALS: BP 168/81
--- NOTE | 2017-09-15 00:11 | NUR ---
RECEIVED IN HALLWAY. SITTING IN WHELCHAIR IN HALLWAY. HEADED TO HIS BEDROOM. CALM AND COOPERATIVE WITH CARE AND ASSESSMENTS. NO SIGNS OF AGGRESSION. ENCOURAGE TO EXPRESS NEEDS. RESTING IN BED EYES CLOSED AT THIS TIME. CONTINUE PLAN OF CARE
--- NOTE | 2017-09-15 09:05 | PN ---
PATIENT:FRANCIS GODOY MEDICAL RECORD: [id number] LOCATION:SARAH Chiu ADMISSION DATE: 09/09/17 PROGRESS NOTE DATE OF SERVICE: 09/14/2017 SUBJECTIVE: The patient's case was discussed with staff. He has no new complaint. OBJECTIVE: The patient is in good behavioral control. He is severely impaired cognitively, but has not been aggressive. ASSESSMENT: No change in diagnoses. PLAN: Current medicines and therapies have been reviewed and will be maintained. Long-term prognosis is guarded. TRANSINT:[id number] Voice Confirmation ID: [id number] DOCUMENT ID: [id number] MITCHELL TERAN MD at 0905 CC: [id number] DICTATION DATE: 09/14/17 1403 FIBRE CEMENT MOULDER: 09/14/17 2113 ADM IN [facility] [address] [place] [address]
[2017-09-15 09:41] VITALS: BP 143/71
--- NOTE | 2017-09-15 10:17 | NUR ---
SW CALLED PT'S DTR TO DISCUSS PT'S DISCHARGE. SW LEFT VOICEMAIL.
--- NOTE | 2017-09-15 10:34 | NUR ---
PT IS CALM, COOPERATIVE. NO AGGRESSION. DISHCHARGE PAPERWORK WAS FAXED TO [facility]. REPORT CALLED. MEDICATIONS GIVEN ORDERED. FALL PRECAUTIONS MAINTAINED. WILL CONTINUE TO MONITOR AND CONTINUE PLAN OF CARE.
--- NOTE | 2017-09-16 12:52 | PN ---
PATIENT:FRANCIS GODOY MEDICAL RECORD: [id number] LOCATION:SARAH Chiu ADMISSION DATE: 09/09/17 PROGRESS NOTE DATE OF SERVICE: 09/15/2017 SUBJECTIVE: The patient's case was discussed with staff. He has no new complaint. OBJECTIVE: The patient is in good behavioral control with limited insight about his condition. He tolerates his medicines well. OBJECTIVE: The patient is in good behavioral control with limited insight about his condition. He will be transitioned out of the hospital today and back to the [facility]. His long-term prognosis is guarded. Brief supportive and educational interventions were made. TRANSINT:[id number] Voice Confirmation ID: [id number] DOCUMENT ID: [id number] MITCHELL TERAN MD at 1252 CC: [id number] DICTATION DATE: 09/15/17 1334 CARRIAGE OPERATOR: 09/15/17 1344 DIS IN 09/15/17 [place] [address] [place] [address]
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
== END 2017-09-15 14:30 | DRG 57 ==
LOC: D.PSYCH 15:35
PROVIDERS: ADMIT Psychiatry & Neurology Psychiatry
DX: I69.919 Unspecified symptoms and signs involving cognitive functions following unspecified cerebrovascular disease (principal); F01.51 Vascular dementia, unspecified severity, with behavioral disturbance; F02.81 Dementia in other diseases classified elsewhere, unspecified severity, with behavioral disturbance; N39.0 Urinary tract infection, site not specified; G30.9 Alzheimer's disease, unspecified; I10 Essential (primary) hypertension; E11.9 Type 2 diabetes mellitus without complications; J44.9 Chronic obstructive pulmonary disease, unspecified; Z74.09 Other reduced mobility; Z72.0 Tobacco use; K21.9 Gastro-esophageal reflux disease without esophagitis; F32.9 Major depressive disorder, single episode, unspecified; N40.0 Benign prostatic hyperplasia without lower urinary tract symptoms; E55.9 Vitamin D deficiency, unspecified; B96.4 Proteus (mirabilis) (morganii) as the cause of diseases classified elsewhere

== ENCOUNTER 2018-08-07 14:07 | Observation (INO) | payer MEDICARE ==
[~2018-08-07] VITALS: Ht 182.9 cm; Wt 81.2 kg
--- NOTE | ~2018-08-07 | MORECARE ---
CASE MANAGEMENT DISCHARGE SUMMARY PATIENT: FRANCIS GODOY UNIT: [id number] ADM DATE: 08/07/18 AGE: 78 : 41 SEX: M ROOM/BED: D.2106 AUTHOR: CLARENCE,DOC PHYSICIAN: REFERRING PHYSICIAN: JERAMIE URIARTE MD DATE OF SERVICE: 08/11/18 Discharge Plan Patient Name: FRANCIS GODOY Facility: [facility]:[place] : 1940 Planned Disposition: Nursing Facility BA Cert Anticipated Discharge Date: 08/11/18 Discharge Date: Expected LOS: 4 Initial Reviewer: [id number] Initial Review Date: 08/11/2018 Generated: 08/11/18 10:55 am Comments DCP- Discharge Planning Updated by [email or web address]: Francis Velarde on 08/11/18 8:[address] Patient Name: FRANCIS GODOY Admission Status: ER Accout number: [id number] Admission Date: 08-07-2018 : 1940 Admission Diagnosis: Attending: JERAMIE URIARTE Current LOS: 4 Anticipated DC Date: 08-11-2018 Planned Disposition: Nursing Facility BA Cert Primary Insurance: HU[employer]NA CHOICE PPO MCR ADVANT PLANNED EXTERNAL PROVIDER: [facility] MEDICAID BED Discharge Planning Comments: CM FAXED UPDATE TO [facility] AT APPROXIMATELY 1700 HOURS, 08-10-18. ON 08-11-18, CM RECEIVED DISCHARGE ORDER, PT REPORTS LIVING AT [facility] IN [place], FACILITY NAME UNKNOWN, STATES HE HAS LIVED THERE THREE WEEKS AND WILL RETURN THERE FROM HOSPITAL TODAY. PT REPORTS ABILITY TO WALK AND SIT IN WHEELCHAIR FOR VAN POLICY ADVISOR TODAY. PT ASKED CM TO CALL HIS DAUGHTER BEBA AND LET HER KNOW TOO. CM CALLED BEBA CHINO, LISTED EMERGENCY CONTACT, , LEFT DETAILED MESSAGE WITH CM CALL BACK INFORMATION. CM CALLED [facility], , SPOKE TO HONEY, PT'S NURSE AT FACILITY, NOTIFIED OF DISCHARGE TODAY. HONEY WILL RECEIVE REPORT AND WILL ARRANGE TRANSPORTATION NARESH POLICY ADVISOR PT. CM FAXED DISCHARGE INFORMATION TO [facility] AT [phone]. NURSE REPORT TO BE CALLED TO HONEY AT [facility], ; [facility] TO ARRANGE VAN TRANSPORTATION. Glass Mould Cleaner: Francis Velarde DCPIA - Discharge Planning Initial Assessment Updated by [id number]: Francis Velarde on 08/11/18 9:47 am * Is the patient Alert and Oriented? Yes * How many steps to enter\exit or inside your home? NONE * PCP DR URIARTE * Pharmacy [facility] [place] * Preadmission Environment Shelter Long Term * Facility Name [facility] * Partial ADLs (Assistance needed) Bathing Medication Management * Equipment Other * Other Equipment ALL MEDICAL EQUIPMENT PROVIDED BY FACILITY * List name and contact numbers for known caregivers / representatives who currently or will assist patient after discharge: BEBA CHINO, DTR, * Verbal permission to speak to the caregivers and representatives has been obtained from the patient. Yes * Community resources currently utilized None * Please name any agencies selected above. NONE * Additional services required to return to the preadmission environment? No * Can the patient safely return to the preadmission environment? Yes * Has this patient been hospitalized within the prior 30 days at any hospital? 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 Last DP export: 08/11/18 8:48 Patient Name: FRANCIS GODOY Page [phone] at 0955 All edits/amendments must be made on the electronic document DICTATION DATE: 08/11/18953 BRAND RECORDER: LARA 08/11/18953 RPT#: [id number] DC DATE: STATUS: ADM IN [facility] [address] [place] [address] END OF REPORT
--- NOTE | ~2018-08-07 | MORECARE ---
CASE MANAGEMENT DISCHARGE SUMMARY PATIENT: FRANCIS GODOY UNIT: [id number] ADM DATE: 08/07/18 AGE: 78 : 41 SEX: M ROOM/BED: D.2106 AUTHOR: CLARENCEDOC PHYSICIAN: REFERRING PHYSICIAN: JERAMIE URIARTE MD DATE OF SERVICE: 08/11/18 Discharge Plan Patient Name: FRANCIS GODOY Facility: [facility]:[place] : 1940 Planned Disposition: Nursing Facility BA Cert Anticipated Discharge Date: 08/11/18 Discharge Date: Expected LOS: 4 Initial Reviewer: [email or web address] Initial Review Date: 08/11/2018 Generated: 08/11/18 5:09 pm Comments DCP- Discharge Planning Updated by [id number]: Nydia Velarde on 08/11/18 3:[address] Patient Name: FRANCIS GODOY Encounter No: [id number] : 1940 Primary Insurance: HUMANA CHOICE PPO MCR ADVANT Anticipated DC Date: 08-11-2018 Planned Disposition: Nursing Facility BA Cert External Planned Provider: [facility] [place] [facility] [facility] MEDICAID BED DCP follow-up note: MALIK RECEIVED MESSAGE FROM BEDSIDE NURSE THAT [facility] IS BROKE DOWN AND THE FACILITY WANTS THE HOSPITAL TO CALL AN AMBULANCE. [facility], SPOKE TO RYLEY BARAJAS LPN/JESSICA; MALIK ADVISED PT DOES NOT QUALIFY FOR AMBULANCE TRANSPORT AND THAT THE HOSPITAL IS NOT PAYING FOR THE TRANSPORT. RYLEY ADVISED THAT [facility] WILL PAY FOR THE AMBULANCE TRANSPORT AND ASKED CM TO ARRANGE. MALIK CALLED [employer], SPOKE TO NYDIA AND PROVIDED INFORMATION STATED ABOVE. SHERI TO SEND AMBULANCE TO PULP DRIER FIRER PT. BEDSIDE NURSE AND CLINICAL RESEARCH SPEC NURSE NOTIFIED. Nydia Velarde, CASE MANAGEMENT DCP- Discharge Planning Updated by [email or web address]: Nydia Velarde on 08/11/18 8:[address] Patient Name: FRANCIS GODOY Admission Status: ER Accout number: [id number] Admission Date: 08-07-2018 : 1940 Admission Diagnosis: Attending: JERAMIE URIARTE Current LOS: 4 Anticipated DC Date: 08-11-2018 Planned Disposition: Nursing Facility BA Cert Primary Insurance: HUMANA CHOICE PPO MCR ADVANT PLANNED EXTERNAL PROVIDER: [facility], [place] [employer] [facility] MEDICAID BED Discharge Planning Comments: CM FAXED UPDATE TO [facility] AT APPROXIMATELY 1700 HOURS, 08-10-18. ON 08-11-18, CM RECEIVED DISCHARGE ORDER, PT [facility] [place], FACILITY NAME UNKNOWN, STATES HE HAS LIVED THERE THREE WEEKS AND WILL RETURN THERE FROM HOSPITAL TODAY. PT REPORTS ABILITY TO WALK AND SIT IN WHEELCHAIR FOR VAN PULP DRIER FIRER TODAY. PT ASKED CM TO CALL HIS DAUGHTER BEBA AND LET HER KNOW TOO. CM CALLED BEBA CHINO, LISTED EMERGENCY CONTACT, , LEFT DETAILED MESSAGE WITH CM CALL BACK INFORMATION. CM CALLED [facility], , SPOKE TO HONEY, PT'S NURSE AT FACILITY, NOTIFIED OF DISCHARGE TODAY. HONEY WILL RECEIVE REPORT AND WILL ARRANGE TRANSPORTATION NARESH PULP DRIER FIRER PT. CM FAXED DISCHARGE INFORMATION TO [facility] AT [phone]. NURSE REPORT TO BE CALLED TO HONEY AT [facility], ; [facility] TO ARRANGE VAN TRANSPORTATION. Mortgage Loan Coordinator: Nydia Velarde DCPIA - Discharge Planning Initial Assessment Updated by [email or web address]: Nydia Velarde on 08/11/18 9:47 am * Is the patient Alert and Oriented? Yes * How many steps to enter\exit or inside your home? NONE * PCP DR URIARTE * Pharmacy [facility] [place] * Preadmission Environment Cent[employer] [facility] * Facility Name [facility] * Partial ADLs (Assistance needed) Bathing Medication Management * Equipment Other * Other Equipment ALL MEDICAL EQUIPMENT PROVIDED BY FACILITY * List name and contact numbers for known caregivers / representatives who currently or will assist patient after discharge: BEBA CHINO, DTR, * Verbal permission to speak to the caregivers and representatives has been obtained from the patient. Yes * Community resources currently utilized None * Please name any agencies selected above. NONE * Additional services required to return to the preadmission environment? No * Can the patient safely return to the preadmission environment? Yes * Has this patient been hospitalized within the prior 30 days at any hospital? 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 Last DP export: 08/11/18 8:55 Patient Name: FRANCIS GODOY Page [phone] at 1609 All edits/amendments must be made on the electronic document DICTATION DATE: 08/11/181607 LIQUOR BRIDGE OPERATOR HELPER: LARA 08/11/181607 RPT#: [id number] DC DATE: STATUS: ADM IN [facility] [address] [place] [address] END OF REPORT
--- NOTE | ~2018-08-07 | MORECARE ---
CASE MANAGEMENT DISCHARGE SUMMARY PATIENT: FRANCIS GODOY UNIT: [id number] ADM DATE: 08/07/18 AGE: 78 : 41 SEX: M ROOM/BED: D.2106 AUTHOR: CLARENCEDOC PHYSICIAN: REFERRING PHYSICIAN: JERAMIE URIARTE MD DATE OF SERVICE: 08/11/18 Discharge Plan Patient Name: FRANCIS GODOY Facility: [facility]:[place] : 1940 Planned Disposition: Nursing Facility BA Cert Anticipated Discharge Date: 08/11/18 Discharge Date: Expected LOS: 4 Initial Reviewer: [email or web address] Initial Review Date: 08/11/2018 Generated: 08/11/18 10:48 am DCPIA - Discharge Planning Initial Assessment Updated by [id number]: Francis Velarde on 08/11/18 9:47 am * Is the patient Alert and Oriented? Yes * How many steps to enter\exit or inside your home? NONE * PCP DR URIARTE * Pharmacy [facility] [place] * Preadmission Environment [facility] * Facility Name [facility] * Partial ADLs (Assistance needed) Bathing Medication Management * Equipment Other * Other Equipment ALL MEDICAL EQUIPMENT PROVIDED BY FACILITY * List name and contact numbers for known caregivers / representatives who currently or will assist patient after discharge: BEBA CHINO DTR, * Verbal permission to speak to the caregivers and representatives has been obtained from the patient. Yes * Community resources currently utilized None * Please name any agencies selected above. NONE * Additional services required to return to the preadmission environment? No * Can the patient safely return to the preadmission environment? Yes * Has this patient been hospitalized within the prior 30 days at any hospital? 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 Patient Name: FRANCIS GODOY Page [phone] at 0948 All edits/amendments must be made on the electronic document DICTATION DATE: 08/11/18947 DRAIN CLEANER: LARA 08/11/18947 RPT#: [id number] DC DATE: STATUS: ADM IN [facility] [address] [place] [address] END OF REPORT
[~2018-08-07 14:07] MED LIST changes: +EFFEXOR37.5 MG PO; +FLORAJEN3 CAPS460 MG PO; +LIPITOR10 MG PO; +Levaquin PO
[2018-08-07] MEDS ORDERED: CATAPRES0.1 MG PO (14:15)
[2018-08-07] MEDS ORDERED: HYDRALAZINE HCL10 MG PO (14:16)
[2018-08-07] MEDS ORDERED: ACETAMINOPHEN325 MG PO (14:17)
[2018-08-07 14:41] LABS: BASOPHILS 0.1 % (0-2); EOSINOPHILS 1.5 % (0-7); HEMATOCRIT 43.1 % (42.0-54.0); HEMOGLOBIN 14.9 g/dL (13.5-17.5); IMMATURE GRANULOCYTES 0.5 % (0-5); MCH 31.2 pg (26.0-34.0); MCHC 34.6 g/dL (31.0-37.0); MCV 90.2 fL (80.0-100.0); MEAN PLATELET VOLUME 12.2 fL (7.4-10.4); MONOCYTES 6.7 % (2-11); NEUTROPHILS 67.2 % (40-80); RBC 4.78 10x6/uL (4.20-6.10); RDW 13.1 % (11.5-14.5); WBC 11.1 10x3/uL (4.8-10.8)
[2018-08-07 14:42] LABS: PLATELET COUNT 249 10x3/uL (130-400)
[2018-08-07 14:50] LABS: APTT 27.7 SECONDS (22.8-39.4); INR 1.03 (0.85-1.17); PROTIME 13.1 SECONDS (11.6-15.0)
[2018-08-07 15:06] LABS: ALKALINE PHOSPHATASE 133 U/L (46-116); ALT (SGPT) 32 U/L (10-68); BILIRUBIN - TOTAL 0.27 mg/dL (0.2-1.3); CALCIUM 10.1 mg/dL (8.5-10.1); CARBON DIOXIDE 26.7 mmol/L (21.0-32.0); CHLORIDE - SERUM 97 mmol/L (98-107); CREATINE KINASE 328 UL (21-232); CREATININE - SERUM 1.1 mg/dL (0.6-1.3); MAGNESIUM - SERUM 1.8 mg/dL (1.8-2.4); POTASSIUM - SERUM 4.2 mmol/L (3.5-5.1); PROTEIN - SERUM 8.3 g/dL (6.4-8.2); SODIUM 135 mmol/L (136-145); UREA NITROGEN 14 mg/dL (7-18); eGFR NON AFRICAN AMERICAN 69 mL/min (90-120)
[2018-08-07 15:16] LABS: CALC OSMOLALITY 289 mosm/kg (275-300); GLUCOSE 442 mg/dL (74-106); TROPONIN-I < 0.017 ng/mL (0.000-0.060)
[2018-08-07 15:17] LABS: UDS - AMPHET NEGATIVE QUAL (NEGATIVE); UDS - BARB NEGATIVE QUAL (NEGATIVE); UDS - BENZO NEGATIVE QUAL (NEGATIVE); UDS - COCAINE NEGATIVE QUAL (NEGATIVE); UDS - OPIATE NEGATIVE QUAL (NEGATIVE); UDS - PCP NEGATIVE QUAL (NEGATIVE); UDS - THC NEGATIVE QUAL (NEGATIVE)
[2018-08-07 15:31] LABS: APPEARANCE CLEAR (CLEAR); BACTERIA NONE SEEN /hpf (NONE SEEN); BILIRUBIN NEGATIVE (NEGATIVE); COLOR YELLOW (YELLOW); EPITHELIAL CELLS NSEEN /hpf (0-5); GLUCOSE 1000 mg/dL (NEGATIVE); KETONE NEGATIVE (NEGATIVE); NITRITE NEGATIVE (NEGATIVE); PROTEIN NEGATIVE (NEGATIVE); RED CELLS - URINE NONE SEEN /hpf (0-5); SPECIFIC GRAVITY 1.015 (1.005-1.020); UROBILINOGEN NORMAL (NORMAL); WHITE CELLS - URINE NSEEN /hpf (0-5)
[2018-08-07] MEDS ORDERED: MYCOSTATIN CREA15 GM TOPICAL (22:30)
[2018-08-08] VITALS (7 sets, daily range): BP systolic 121–150; BP diastolic 63–77; BMI 27.2
[2018-08-08 05:40] LABS: BASOPHILS 0.2 % (0-2); EOSINOPHILS 1.7 % (0-7); HEMATOCRIT 38.4 % (42.0-54.0); HEMOGLOBIN 12.9 g/dL (13.5-17.5); IMMATURE GRANULOCYTES 0.7 % (0-5); LYMPHOCYTES 28.5 % (15-50); MCH 30.6 pg (26.0-34.0); MCHC 33.6 g/dL (31.0-37.0); MCV 91.2 fL (80.0-100.0); MEAN PLATELET VOLUME 11.8 fL (7.4-10.4); MONOCYTES 8.7 % (2-11); NEUTROPHILS 60.2 % (40-80); PLATELET COUNT 203 10x3/uL (130-400); RBC 4.21 10x6/uL (4.20-6.10); RDW 13.4 % (11.5-14.5); WBC 10.1 10x3/uL (4.8-10.8)
[2018-08-08 06:30] LABS: CALCIUM 9.2 mg/dL (8.5-10.1); CHLORIDE - SERUM 104 mmol/L (98-107); POTASSIUM - SERUM 4.1 mmol/L (3.5-5.1); SODIUM 139 mmol/L (136-145); T4 THYROXIN - FREE 1.39 ng/dL (0.76-1.46); THYROID STIMULATING HORMONE 1.14 uIU/mL (0.36-3.74); UREA NITROGEN 12 mg/dL (7-18)
[2018-08-08 06:35] LABS: CALC OSMOLALITY 286 mosm/kg (275-300); CREATININE - SERUM 0.8 mg/dL (0.6-1.3); GLUCOSE 264 mg/dL (74-106); eGFR NON AFRICAN AMERICAN > 90 mL/min (90-120)
[2018-08-09] VITALS: BP 137/64
[2018-08-09 04:00] VITALS: BP 153/88
[2018-08-09 09:54] VITALS: BP 143/74
[2018-08-09 11:39] VITALS: BP 145/73
[2018-08-09 13:40] VITALS: Ht 182.9 cm; Wt 81.2 kg
[2018-08-09 15:25] VITALS: BP 142/116
[2018-08-09 20:44] VITALS: BP 140/56
[2018-08-10 00:25] VITALS: BP 140/74
[2018-08-10 04:00] VITALS: BP 141/64
[2018-08-10 08:21] VITALS: BP 156/67
[2018-08-10 11:43] VITALS: BP 147/78
[2018-08-10 16:00] VITALS: BP 144/73
[2018-08-10 21:48] VITALS: BP 148/73
[2018-08-11 00:02] VITALS: BP 162/87
[2018-08-11 05:25] VITALS: BP 140/68
[2018-08-11 08:17] VITALS: BP 145/80
[2018-08-11 11:55] VITALS: BP 150/72
== END 2018-08-11 17:32 ==
LOC: D.ER 14:07 → D.M2 18:02 → OBSVTIME 18:02 → D.M2 08-11 17:32
PROVIDERS: Family Medicine
DX: E86.0 Dehydration (principal); G30.9 Alzheimer's disease, unspecified; F02.81 Dementia in other diseases classified elsewhere, unspecified severity, with behavioral disturbance; I10 Essential (primary) hypertension; E78.5 Hyperlipidemia, unspecified; Z74.09 Other reduced mobility; F32.9 Major depressive disorder, single episode, unspecified; E11.9 Type 2 diabetes mellitus without complications; F41.9 Anxiety disorder, unspecified